=== PATIENT | female | born 1990 | race Two or more races ===

== ENCOUNTER 2020-05-23 13:25 | Outpatient (REF) | payer BC, SELFPAY ==
[2020-05-26 11:09] LABS: CT PCR NOT DETECTED (Not Detect.); NG PCR NOT DETECTED (Not Detect.)
== END 2020-05-23 13:26 | disposition home or self-care (01) ==
LOC: HO.LAB 13:25
PROVIDERS: Visit Provider Advanced Practice Midwife
DX: R10.2 Pelvic and perineal pain (principal); K59.00 Constipation, unspecified; Z20.2 Contact with and (suspected) exposure to infections with a predominantly sexual mode of transmission; Z32.02 Encounter for pregnancy test, result negative
CPT/HCPCS: 81025; 87491; 87591

== ENCOUNTER 2020-08-16 13:31 | Outpatient (REF) | payer BC, SELFPAY ==
[2020-08-17 08:43] LABS: BV Int Neg Control Negative (Negative); BV Int Pos Control Positive (Positive)
[2020-08-21 07:32] LABS: HPV mRNA E6/E7 rflx Not Detected (Not Detected)
== END 2020-08-16 13:32 | disposition home or self-care (01) ==
LOC: HO.LAB 13:31
PROVIDERS: Visit Provider Advanced Practice Midwife
DX: Z01.411 Encounter for gynecological examination (general) (routine) with abnormal findings (principal); Z11.51 Encounter for screening for human papillomavirus (HPV); N89.8 Other specified noninflammatory disorders of vagina; F17.200 Nicotine dependence, unspecified, uncomplicated
CPT/HCPCS: 36415; 87480; 87510; 87624; 87660; 88142

== ENCOUNTER 2021-04-16 15:01 | Outpatient (REF) | payer BC, SELFPAY ==
[2021-04-16 16:38] LABS: MANUAL DIFF FLAG NO
[2021-04-16 17:20] LABS: Basophils Percent Auto 0.5 % (0-2); Eosinophils Absolute Auto 0.1 X10*3/uL (0.0-0.4); Eosinophils Percent Auto 1.4 % (0-4); Hematocrit 36.7 % (37.0-47.0); Imm Gran Abs Auto 0.01 X10*3/uL (0.00-0.03); Imm Gran Pct Auto 0.2 % (0.0-0.4); Lymphocytes Absolute Auto 2.8 X10*3/uL (1.2-4.9); Mean Corpuscular HGB Conc 32.7 g/dl (31.0-35.0); Mean Corpuscular Hemoglobin 27.4 pg (27.0-33.0); Mean Corpuscular Volume 83.8 fL (80.0-98.0); Mean Platelet Volume 10.5 fL (9.4-12.3); Monocytes Absolute Auto 0.8 X10*3/uL (0.1-1.2); Monocytes Percent Auto 11.7 % (2-11); Neutrophils Absolute Auto 2.71 x10*3/uL (2.0-8.3); Neutrophils Percent Auto 42.2 % (45-73); Platelet Count 309 X10*3/uL (160-400); Red Blood Count 4.38 X10*6/uL (4.20-5.50); Red Cell Distribution Width 12.9 % (11.0-16.0); White Blood Count 6.4 X10*3/uL (4.8-10.8)
[2021-04-16 17:46] LABS: Alanine Aminotransferase 31 U/L (0-31); Albumin Level 4.2 g/dL (3.5-5.0); Alkaline Phosphatase 74 U/L (39-117); Anion Gap 11 (12-20); Aspartate Amino Transferase 16 U/L (5-31); Bilirubin Total 0.3 mg/dL (0.0-1.0); Blood Urea Nitrogen 11 mg/dL (9-16); Calcium 8.8 mg/dL (8.4-10.2); Carbon Dioxide 24 mmol/L (22-29); Chloride 107 mmol/L (96-108); Estimated Glomerular Filt Rate > 60; Glucose Random 84 mg/dL (60-115); Potassium 4.1 mmol/L (3.3-5.1); Sodium 138 mmol/L (135-145); Total Protein 6.9 g/dL (6.5-8.0)
== END 2021-04-16 15:02 | disposition home or self-care (01) ==
LOC: HO.LAB 15:01
PROVIDERS: PCP Internal Medicine; Visit Provider Nurse Practitioner
DX: R10.10 Upper abdominal pain, unspecified (principal); K21.9 Gastro-esophageal reflux disease without esophagitis
CPT/HCPCS: 36415; 80053; 84443; 85025

== ENCOUNTER 2021-04-19 12:06 | Outpatient (REF) | payer BC, SELFPAY | END 2021-04-19 12:07 | disposition home or self-care (01) | LOC: HO.LNP 12:06 | PROVIDERS: Visit Provider Nurse Practitioner | DX: R10.10 Upper abdominal pain, unspecified (principal) | CPT/HCPCS: 87338 ==

== ENCOUNTER 2021-05-21 09:57 | Outpatient (REF) | payer BC, SELFPAY ==
--- NOTE | ~2021-05-21 | US_ITS ---
EXAMINATION: US ABDOMEN COMPLETE CLINICAL INFORMATION: Upper abdominal pain, unspecified. COMPARISON: None TECHNIQUE: Real-time imaging of the abdominal viscera. FINDINGS: PANCREAS: Normal. ABDOMINAL AORTA: The proximal, mid, and distal segments are normal in caliber. INFERIOR VENA CAVA: Visualized portions are normal. LIVER: The liver is normal in size. The liver contour is normal. There is increased liver echogenicity. No focal hepatic lesion. There is no intrahepatic biliary duct dilatation seen. GALLBLADDER: Normal. The gallbladder is physiologically distended without evidence of stones, sludge, polyps, wall thickening or pericholecystic fluid. COMMON BILE DUCT: Normal in caliber measuring 0.14 cm in diameter. RIGHT KIDNEY: Normal. No hydronephrosis. No renal calculi or focal parenchymal lesions. The kidney measures 9.7 cm in maximum dimension. LEFT KIDNEY: Normal. No hydronephrosis. No renal calculi or focal parenchymal lesions. The kidney measures 10.0 cm in maximum dimension. SPLEEN: Normal. The spleen measures 9.0 cm in maximum dimension. FREE FLUID: None. US/US abdomen complete IMPRESSION: Mild hepatic steatosis without focal lesion. Rest of the abdominal ultrasound is unremarkable.
== END 2021-05-21 09:58 | disposition home or self-care (01) ==
LOC: HO.HMGCX 09:57
PROVIDERS: PCP Internal Medicine; Visit Provider Internal Medicine
DX: R10.10 Upper abdominal pain, unspecified (principal)
CPT/HCPCS: 76700

== ENCOUNTER → 2021-05-28 12:42 | Outpatient (BNVA) | payer BC, SELFPAY | PROVIDERS: PCP Internal Medicine; Referring Provider Internal Medicine; Visit Provider Nurse Practitioner ==

== ENCOUNTER 2021-09-19 12:05 | Outpatient (REF) | payer BC, SELFPAY ==
--- NOTE | ~2021-09-19 | XR_ITS ---
EXAMINATION: XR HAND, RIGHT CLINICAL INFORMATION: Right hand pain. COMPARISON: 02/18/2018. TECHNIQUE: PA, lateral, and oblique views of the right hand. FINDINGS: The bones and soft tissues are normal. No fracture. Alignment is anatomic. Joint spaces are maintained. No erosions or soft tissue calcifications. XR/XR hand RT min 3V IMPRESSION: Unremarkable radiographic appearance of the right hand.
== END 2021-09-19 12:06 | disposition home or self-care (01) ==
LOC: HO.XRAY 12:05
PROVIDERS: PCP Internal Medicine; Visit Provider Internal Medicine
DX: M79.641 Pain in right hand (principal)
CPT/HCPCS: 73130

== ENCOUNTER 2021-09-25 10:04 | Outpatient (REF) | payer BC, SELFPAY ==
--- NOTE | ~2021-09-25 | XR_ITS ---
EXAMINATION: LEFT HAND AND WRIST X-RAY CLINICAL INFORMATION: Pain COMPARISON: None TECHNIQUE: 4 views of the left hand and wrist FINDINGS: Bone alignment is normal. No fracture or dislocation is seen. Joint spaces and soft tissues are normal. XR/XR hand wrist LT IMPRESSION: Unremarkable exam.
== END 2021-09-25 10:05 | disposition home or self-care (01) ==
LOC: HO.XRAY 10:04
PROVIDERS: Absent Provider Internal Medicine; PCP Internal Medicine; Visit Provider Family Medicine
DX: M25.532 Pain in left wrist (principal)
CPT/HCPCS: 73110; 73130

== ENCOUNTER 2021-10-10 10:23 | Outpatient (REF) | payer BC, SELFPAY ==
[2021-10-10 17:46] LABS: CT PCR NOT DETECTED (Not Detect.); NG PCR NOT DETECTED (Not Detect.)
[2021-10-11 13:08] LABS: BV Int Neg Control Negative (Negative); BV Int Pos Control Positive (Positive)
== END 2021-10-10 10:24 | disposition home or self-care (01) ==
LOC: HO.LAB 10:23
PROVIDERS: PCP Internal Medicine; Visit Provider Advanced Practice Midwife
DX: Z01.419 Encounter for gynecological examination (general) (routine) without abnormal findings (principal); N89.8 Other specified noninflammatory disorders of vagina; F17.210 Nicotine dependence, cigarettes, uncomplicated; Z20.2 Contact with and (suspected) exposure to infections with a predominantly sexual mode of transmission
CPT/HCPCS: 87480; 87491; 87510; 87591; 87660

== ENCOUNTER 2021-10-15 08:49 | Outpatient (REF) | payer BC, SELFPAY | END 2021-10-15 08:50 | disposition home or self-care (01) | LOC: HO.HOSX 08:49 | PROVIDERS: Visit Provider Orthopaedic Surgery | DX: Z13.89 Encounter for screening for other disorder (principal) ==

== ENCOUNTER 2021-11-12 09:16 | Outpatient (REF) | payer BC, SELFPAY | END 2021-11-12 09:17 | disposition home or self-care (01) | LOC: HO.HOSX 09:16 | PROVIDERS: Visit Provider Orthopaedic Surgery | DX: Z13.89 Encounter for screening for other disorder (principal) ==

== ENCOUNTER 2022-01-13 11:32 | Day surgery (SDC) | payer BC, SELFPAY ==
--- NOTE | 2021-09-13 13:12 | HO.ANESPROP2 ---
HPI - Anesthesia Eval Consult details Narrative: 31yo F for Upper Endoscopy PMFSH Active Problems Active Problems: All Active Problems (Updated 04/16/21 @ 15:48 by MIRIAM Lassiter) Upper abdominal pain (Acute) Vaginal itching (Acute) Smoking (Acute) Encounter for annual routine gynecological examination (Acute) Constipation (Acute) Pelvic pain in female (Acute) Past Medical History Medical History Asthma Eczema H. pylori infection Hyperthyroidism Lower back pain Suicide attempt Syncope Vitamin D deficiency Surgical History Surgical History Hx of tonsillectomy Social History Social History Alcohol intake: current Alcohol intake frequency: a few times a week Cigarettes Per Day: 7 Current occupational status: employed Sexual orientation: Straight/Heterosexual Meds Allergies Allergy/AdvReac Type Severity Reaction Status Date / Time morphine Allergy Unknown rash Verified 09/11/21 16:12 Motrin Allergy Unknown stomach Uncoded 09/11/21 16:12 upset Home Medications Medication Instructions Recorded Confirmed Last Taken Type albuterol sulfate 90 mcg/actuation 2 puff INHALATION Q6H PRN 04/16/21 09/11/21 Unknown History aerosol inhaler (ProAir HFA) naproxen 500 mg tablet 500 mg PO BID PRN 04/16/21 09/11/21 Unknown History polyethylene glycol 3350 17 17 g PO DAILY 04/16/21 09/11/21 Unknown History gram/dose oral powder pantoprazole 40 mg tablet,delayed 40 mg PO BID 05/28/21 09/11/21 Unknown History release loratadine 10 mg tablet 1 tab PO DAILY 09/11/21 09/11/21 Unknown History sucralfate 100 mg/mL oral 10 ml PO QID 09/11/21 09/11/21 Unknown History suspension Exam Exam Date and Time: September 13, 2021 1312 Pertinent Lab Results Pertinent Lab Results: Laboratory Tests 04/16/21 04/16/21 16:35 16:35 WBC 6.4 Hgb 12.0 Hct 36.7 L Plt Count 309 Sodium 138 Potassium 4.1 Chloride 107 Carbon Dioxide 24 BUN 11 Creatinine 0.72 Assessment and Plan Assessment Anesthesia Assessment: Chart Reviewed
[2022-01-07 14:36] VITALS: BMI 29.7
--- NOTE | 2022-01-10 08:59 | P.CONAN_ITS ---
Documented by User: Adeline Cosby NP 01/10/22 09:00 HPI - Anesthesia Eval Consult details Narrative: 31yo F for Upper Endoscopy PMFSH Active Problems Active Problems: All Active Problems (Updated 04/16/21 @ 15:48 by MIRIAM Lassiter) Upper abdominal pain (Acute) Vaginal itching (Acute) Smoking (Acute) Encounter for annual routine gynecological examination (Acute) Constipation (Acute) Pelvic pain in female (Acute) Past Medical History Medical History Asthma Eczema H. pylori infection Hyperthyroidism Lower back pain Suicide attempt Syncope Vitamin D deficiency Surgical History Surgical History Hx of tonsillectomy Social History Social History Alcohol intake: current Alcohol intake frequency: a few times a week Patient Tobacco Use Status: Current everyday Tobacco user Tobacco use type: Cigarette Cigarettes Per Day: 7 Use of substances other than those prescribed or required for medical reasons: No Are you DNR?: No Advance Directives: No Advance Directives Information Provided: Yes Recently lost weight without trying: No Nutrition Risks: No Nutritional Risk Current occupational status: employed Sexual orientation: Straight/Heterosexual Meds Allergies Allergy/AdvReac Type Severity Reaction Status Date / Time morphine Allergy Intermediate rash Verified 01/07/22 14:37 ibuprofen [From Motrin] AdvReac Intermediate Gastrointestinal Verified 01/07/22 14:37 Upset Home Medications Medication Instructions Recorded Confirmed Last Taken Type albuterol sulfate 90 mcg/actuation 2 puff inhalation Q6H PRN Wheezing 04/16/21 09/11/21 Unknown History aerosol inhaler (ProAir HFA) naproxen 500 mg tablet 500 mg PO BID PRN Pain 04/16/21 09/11/21 Unknown History polyethylene glycol 3350 17 17 g PO DAILY 04/16/21 09/11/21 Unknown History gram/dose oral powder pantoprazole 40 mg tablet,delayed 40 mg PO BID 05/28/21 09/11/21 Unknown History release loratadine 10 mg tablet 1 tab PO DAILY 09/11/21 09/11/21 Unknown History sucralfate 100 mg/mL oral 10 ml PO QID 09/11/21 09/11/21 Unknown History suspension Exam Exam Date and Time: January 10, 2022 0859 Height,Weight and Vital Signs: Height 5 ft 4 in Weight 78.471 kg Assessment and Plan Assessment Anesthesia Assessment: Chart Reviewed Documented by User: Fabienne Lara MD 01/13/22 12:30 [facility] Past Medical History Medical History Asthma Eczema H. pylori infection Hyperthyroidism Lower back pain Suicide attempt Syncope Vitamin D deficiency Family History Family history of problems with anesthesia: No Surgical History Surgical History Hx of tonsillectomy History of Problems with Anesthesia: No Social History Social History Alcohol intake: current Alcohol intake frequency: a few times a week Patient Tobacco Use Status: Current everyday Tobacco user Tobacco use type: Cigarette Cigarettes Per Day: 7 Use of substances other than those prescribed or required for medical reasons: No Are you DNR?: No Advance Directives: No Advance Directives Information Provided: Yes Recently lost weight without trying: No Nutrition Risks: No Nutritional Risk Current occupational status: employed Sexual orientation: Straight/Heterosexual Meds Allergies Allergy/AdvReac Type Severity Reaction Status Date / Time morphine Allergy Intermediate rash Verified 01/07/22 14:37 ibuprofen [From Motrin] AdvReac Intermediate Gastrointestinal Verified 01/07/22 14:37 Upset Home Medications Medication Instructions Recorded Confirmed Last Taken Type albuterol sulfate 90 mcg/actuation 2 puff inhalation Q6H PRN Wheezing 04/16/21 09/11/21 Unknown History aerosol inhaler (ProAir HFA) naproxen 500 mg tablet 500 mg PO BID PRN Pain 04/16/21 09/11/21 Unknown History polyethylene glycol 3350 17 17 g PO DAILY 04/16/21 09/11/21 Unknown History gram/dose oral powder pantoprazole 40 mg tablet,delayed 40 mg PO BID 05/28/21 09/11/21 Unknown History release loratadine 10 mg tablet 1 tab PO DAILY 09/11/21 09/11/21 Unknown History sucralfate 100 mg/mL oral 10 ml PO QID 09/11/21 09/11/21 Unknown History suspension Exam Airway Mallampati Class: II TM Dist: >3cm Neck ROM: Full Heart: rrr Lungs: cta Assessment and Plan Assessment Anesthesia Assessment: Anesthesia Plan Discussed Final Anesthetic Review Family History of Problems with Anesthesia: No History of Problems with Anesthesia: No NPO: Yes ASA Class: II Final Preanesthetic Review: No Changes in Pt Med Stat, Meds/Allgs Chart Reviewed and Consent Obtained/Reviewed Patient Risk: Intermediate Procedure Risk: Intermediate Anesthetic Plan Anesthetic Plan: MAC: Disposition: Standard PACU
[2022-01-13 12:14] VITALS: BP 125/52; PULSE 66; RESP 16; TEMP 36.2; O2SAT 97
[2022-01-13 12:35] LABS: UPreg QC Valid YES; Urine Pregnancy NEGATIVE (NEGATIVE)
[2022-01-13] MEDS: Lactated Ringers 1,000 ML 100 ML IVCONT (12:37)
--- NOTE | 2022-01-13 12:52 | MHC.SHP ---
Pre-Procedural Eval Section A Date of Service: 01/13/22 The patient is an INPATIENT: No The History & Physical has been completed within 30 days and I have reviewed it.: No Section B Chief Complaint: Upper abdominal pain Details of Present Illness: Upper abdominal pain Relevant Family History (Specify if Yes): No Relevant Social History: Tobacco Use Present Medications: see Short Stay Collaborative assessment Medical History: Significant History (Asthma Eczema H. pylori infection Hyperthyroidism Lower back pain Suicide attempt Syncope Vitamin D deficiency) History of Previous Operations: Relevant previous surgery/procedure and date(s) (History of tonsillectomy) Allergies: Allergies Allergy/AdvReac Type Severity Reaction Status Date / Time morphine Allergy Intermediate rash Verified 01/07/22 14:37 ibuprofen [From Motrin] AdvReac Intermediate Gastrointestinal Verified 01/07/22 14:37 Upset Review of Systems Sugical H&P ROS: Negative: Constitution, Cardiovascular and Respiratory and Yes, Specify: Gastrointestinal (abdominal pain) Exam Surgical H&P Exam: Normal: Heart, Normal: Lungs, Normal: Extremities and Normal: Abdomen Plan Diagnosis/Plan: Unchanged I have reviewed the history and physical and performed a pertinent physical examination on my patient. No changes have occurred unless specified.
--- NOTE | 2022-01-13 13:19 | PM.OP ---
Brief Operative Note Date of Service: 01/13/22 Pre-op diagnosis: Upper abdominal pain Post-op diagnosis: other (GERD, hiatal hernia, gastritis) Procedure: FLEXIBLE TRANSORAL UPPER GASTROINTESTINAL ENDOSCOPY WITH BIOPSIES Consent: Indications for the procedure and potential complications of bleeding, perforation, reaction to medications and missed diagnosis were discussed with the patient and informed consent was obtained. Instrument: Olympus GIF H 190 mid size upper endoscope Monitoring: Vital signs and clinical assessment, continuous EKG monitoring, Pulse oximetry, Carbon Dioxide monitoring and blood pressure monitoring were done throughout the procedure. Procedure: The patient was placed in the left lateral decubitis position and pre-procedure medications were administered and a bite block was placed. The endoscope was inserted into the mouth and advanced under direct vision to the third part of duodenum. A careful inspection was made as the upper endoscope was withdrawn including a retroflexed examination of the proximal stomach; Findings and interventions are described below. Findings: Larynx: Normal Esophagus: GE junction at 34 cms, small hiatal hernia 34 to 36 cms. A single 1.5 cms erosion at GE junction. No esophagitis or Alexander's. Stomach: Mild gastric erythema. Biopsies were obtained. Grade 2 flap valve on retroflexed examination of the cardia. Duodenum: Normal bulb and descending duodenum. Biopsies were obtained from 3rd part of the duodenum to check for celiac sprue Intervention: Biopsies as noted above Impression and Post Procedure Diagnosis: Endoscopy Findings: ESOPHAGUS: GE junction at 34 cms, small hiatal hernia 34 to 36 cms. A single 1.5 cms erosion at GE junction. No esophagitis or Alexander's. STOMACH: Mild gastric erythema. Biopsies were obtained. DUODENUM: Normal - biopsied to check for celiac sprue Plan: Await pathology results Patient has an appointment on 01/28/22 in the GI Clinic with Monique Levine NP. GERD and Hiatal Hernia handouts were given in the discharge area Surgeon: Jennifer Solis MD Anesthesia: MAC (Dr Taylor) Was an Certification Engineer used for this Procedure?: Yes Certification Engineer: Dimitri Cuenca Estimated blood loss (mL): 0 Pathology: other ( A) BX Small Bowel R/O Celliacs Disease B) BX Gastric Antrum R/O H. Pylori) Condition: stable Disposition: PACU
--- NOTE | 2022-01-13 13:20 | W.PM.OPN ---
Operative Note Operative Note Date of Service: 01/13/22 Narrative: Pre-op diagnosis: Upper abdominal pain Post-op diagnosis:?other (GERD, hiatal hernia, gastritis) Procedure: FLEXIBLE TRANSORAL UPPER GASTROINTESTINAL ENDOSCOPY WITH BIOPSIES Consent:?Indications for the procedure and potential complications of bleeding, perforation, reaction to medications and missed diagnosis were discussed with the patient and informed consent was obtained. Instrument:?Olympus GIF H 190 mid size upper endoscope Monitoring: Vital signs and clinical assessment, continuous EKG monitoring, Pulse oximetry, Carbon Dioxide monitoring and blood pressure monitoring were done throughout the procedure. Procedure:?The patient was placed in the left lateral decubitis position and pre-procedure medications were administered and a bite block was placed. The endoscope was inserted into the mouth and advanced under direct vision to the third part of duodenum. A careful inspection was made as the upper endoscope was withdrawn including a retroflexed examination of the proximal stomach; Findings and interventions are described below. Findings: Larynx:? Normal Esophagus: GE junction at 34 cms, small hiatal hernia 34 to 36 cms. A single 1.5 cms erosion at GE junction.? No esophagitis or Alexander's. Stomach: Mild gastric erythema. Biopsies were obtained. Grade 2 flap valve on retroflexed examination of the cardia. Duodenum: Normal bulb and descending duodenum. Biopsies were obtained from 3rd part of the duodenum to check for celiac sprue Intervention: Biopsies as noted above Impression and Post Procedure Diagnosis: Endoscopy Findings: ESOPHAGUS: GE junction at 34 cms, small hiatal hernia 34 to 36 cms. A single 1.5 cms erosion at GE junction.? No esophagitis or Alexander's. STOMACH:? Mild gastric erythema. Biopsies were obtained. DUODENUM:? Normal - biopsied to check for celiac sprue Plan: Await pathology results Patient has an appointment on 01/28/22 in the GI Clinic with? Monique Levine NP. GERD and Hiatal Hernia handouts were given in the discharge area Surgeon: Jennifer Solis MD Anesthesia:?MAC (Dr Taylor) Was an Commodity Trader used for this Procedure?:?Yes Commodity Trader:?Dimitri Cuenca Estimated blood loss (mL):?0 Pathology:?other ( A) BX Small Bowel? R/O Celliacs Disease? B) BX Gastric Antrum? R/O H. Pylori) Condition:?stable Disposition:?PACU
[2022-01-13 13:39] VITALS: BP 99/56; PULSE 59; RESP 14; TEMP 36.1; O2SAT 100
[2022-01-13 13:54] VITALS: BP 114/63; PULSE 83; RESP 18; TEMP 36.1; O2SAT 100
== END 2022-01-13 14:08 | disposition home or self-care (01) ==
PROVIDERS: Nurse Practitioner; PCP Internal Medicine; Visit Provider Internal Medicine Gastroenterology
PROC: 0DJ08ZZ Inspection of Upper Intestinal Tract, Via Natural or Artificial Opening Endoscopic (ICD-10-PCS; CPT 43235; principal; 2022-01-13 12:40)
DX: K29.50 Unspecified chronic gastritis without bleeding (principal); K44.9 Diaphragmatic hernia without obstruction or gangrene; K20.80 Other esophagitis without bleeding; K21.9 Gastro-esophageal reflux disease without esophagitis; K76.0 Fatty (change of) liver, not elsewhere classified; K59.00 Constipation, unspecified; J45.909 Unspecified asthma, uncomplicated; L30.9 Dermatitis, unspecified; E05.90 Thyrotoxicosis, unspecified without thyrotoxic crisis or storm; E55.9 Vitamin D deficiency, unspecified; R55 Syncope and collapse; M54.50 Low back pain, unspecified; Z79.899 Other long term (current) drug therapy; Z88.8 Allergy status to other drugs, medicaments and biological substances; F12.10 Cannabis abuse, uncomplicated
CPT/HCPCS: 43239; 81025; 88305; 88342; J3010

== ENCOUNTER 2023-01-23 14:38 | Outpatient (AMB) | payer BC, SELFPAY ==
[2023-01-23 14:48] VITALS: BP 120/72; BMI 27.3
--- NOTE | 2023-01-23 14:48 | MHC.OFFVIS ---
Intake Vital Signs 01/23/23 14:48 Height 5 ft 4 in Weight 159 lb BMI 27.3 BP 120/72 Intake Visit Reasons: Annual Intake Note: no concerns The patient agreed to use of a medical billing supervisor during this encounter. Scribed for THEODORE Domingo by Purvi Ortiz medical billing supervisor, on 01/23/2023 at 3:13 pm EST. Data Acquisition Technician Required: No Information Interpreted: non-clinical & clinical [employer] Contact Printer: [employer] Boards Contact Printer Present (Trinity REYNOSO) Accompanied by: Self / Same As Patient Allergies morphine Allergy (Intermediate, Verified 01/23/23 14:52) rash ibuprofen [From Motrin] Adverse Reaction (Intermediate, Verified 01/23/23 14:52) Gastrointestinal Upset Is last menstrual period known: Yes Last menstrual period: 01/17/23 HPI HPI Comments History of Present Illness Details She is a premenopausal woman presenting for annual exam. Reports frequent urination at night and hydrates well during the day. She admits to eating healthy and tries to stay active with exercise. Currently not sexually active. Denies vaginal itching and irritation. STD screening offered; she declines. Denies family hx of breast, colon and ovarian cancer. Last pap smear 08/17/20. PFSH Medical History Asthma Eczema H. pylori infection Hyperthyroidism Lower back pain Suicide attempt Syncope Vitamin D deficiency Surgical History History of esophagogastroduodenoscopy Hx of tonsillectomy Family History Mother HTN (hypertension) Acute asthma Social History Household Members: None Housing: House Alcohol intake: current Alcohol intake frequency: a few times a week Patient Tobacco Use Status: Current everyday Tobacco user Tobacco use type: Cigarette Cigarettes Per Day: 7 Current occupational status: employed Current occupation: Sociology Faculty Member post office Sexual orientation: Straight/Heterosexual Gender identity: Female Female Reproductive History Menstrual Age of Menarche: 10 Date of last menstrual period: 01/17/23 control method: none Total pregnancies: 1 Number of Living Children: 0 Ab spontaneous: 0 Date of last pap smear: 08/17/20 Physical Exam Vital Signs: Last Vital Signs BP 120/72 01/23/23 14:48 BMI result Body Mass Index 27.3 Const General: cooperative, healthy appearing, no acute distress, well developed and alert Orientation/consciousness: patient oriented x3 HEENT Head: Yes normal to inspection Eyes General: appearance normal, both eyes and all related structures Neck Neck: Yes normal visual inspection Thyroid: Thyroid normal Chest Chest palpation & inspection: normal inspection of the chest Breast/axilla inspection: normal inspection of the breasts (no puckering, dimpling, peau de orange, retraction, discharge, masses) Breast/axilla palpation: normal palpation of the breasts Resp Effort & Inspection: normal respiratory effort GI Inspection: Yes normal to inspection Palpation (GI): Soft to palpation (to palpation) Rectal Exam - Female: deferred General: Yes bladder normal to inspection External Female Exam: normal external appearance and normal appearance of the urethra Speculum Exam - Vagina: normal appearance of the vagina, normal palpation and normal vaginal discharge Speculum Exam - Cervix: normal appearance of the cervix and normal palpation Bimanual exam- vagina & uterus: normal palpation and normal palpation Bimanual Exam- Adnexa, other: normal adnexae and no masses Skin General skin exam: no rashes or lesions noted Neuro General: patient oriented x3 Cognition (Neuro): normal cognition Extrem General: Yes normal to inspection Psych Attitude: cooperative Thought process: Normal thought process present Results AMB Urinalysis Dipstick UR Leukocytes Negative Last Edit by Trinity Bobo CMA on 01/23/23 15:34 UR Nitrite Negative Last Edit by Trinity Bobo CMA on 01/23/23 15:34 UR Urobilinogen Normal Last Edit by Trinity Bobo CMA on 01/23/23 15:34 UR Protein Trace Last Edit by Trinity Bobo CMA on 01/23/23 15:34 UR Ph 8.5 Last Edit by Trinity Bobo CMA on 01/23/23 15:34 UR Blood Negative Last Edit by Trinity Bobo CMA on 01/23/23 15:34 UR Specific [place] 1.010 Last Edit by Trinity Bobo CMA on 01/23/23 15:34 UR Ketone Negative Last Edit by Trinity Bobo CMA on 01/23/23 15:34 UR Bilirubin Negative Last Edit by Trinity Bobo CMA on 01/23/23 15:34 UR Glucose Negative Last Edit by Trinity Bobo CMA on 01/23/23 15:34 Results Reviewed Results Reviewed: Laboratory Last Values Urine pH (Clinic) 8.5 01/23/23 15:33 Specific [place] (Clinic) 1.010 01/23/23 15:33 Ur Protein (Clinic) Trace 01/23/23 15:33 Ur Ketones (Clinic) Negative 01/23/23 15:33 Urine Blood (Clinic) Negative 01/23/23 15:33 Urine Nitrite Negative 01/23/23 15:33 Urine Bilirubin (Clinic) Negative 01/23/23 15:33 Urobilinogen (Clinic) Normal 01/23/23 15:33 Leukocyte Esterase (Clinic) Negative 01/23/23 15:33 Urine Glucose (Clinic) Negative 01/23/23 15:33 Assessment & Plan Assessment & Plan (1) Encounter for annual routine gynecological examination: Code(s): Z01.419 - Encounter for gynecological examination (general) (routine) without abnormal findings Plan: Discussed: Current recommendations for pap smears per ASCCP guidelines Breast awareness and periodic self breast exams. Maintaining a healthy lifestyle including a well balanced diet and routine exercise. Encouraged to use condoms for STD and prevention if become sexual active. All of her questions and concerns were addressed to the best of my ability. RTO in one year for AG. (2) Frequency of urination: Code(s): R35.0 - Frequency of micturition Plan: Recommend to limit caffeine, one per day, and to stop carbonated, sugared, and artificial sweetened beverages. Hydrate well with water. Orders: Orders AMB Urinalysis Dipstick Today R10.2 - Pelvic and perineal pain Coding Level of Care Code Est Pt Prev Care 18-39y(59538) Diagnoses Encounter for annual routine gynecological examination Z01.419 Frequency of urination R35.0
== END 2023-01-23 15:24 | disposition home or self-care (01) ==
LOC: HO.HWS 14:38
PROVIDERS: PCP Internal Medicine; Visit Provider Advanced Practice Midwife
DX: Z01.419 Encounter for gynecological examination (general) (routine) without abnormal findings (principal); R35.0 Frequency of micturition; R10.2 Pelvic and perineal pain
CPT/HCPCS: 99395

== ENCOUNTER → 2023-01-23 14:38 | Outpatient (BNVA) | payer BC, SELFPAY | PROVIDERS: PCP Internal Medicine; Visit Provider Advanced Practice Midwife | DX: Z01.419 Encounter for gynecological examination (general) (routine) without abnormal findings (principal); R35.0 Frequency of micturition | CPT/HCPCS: 81002 ==

== ENCOUNTER 2023-08-28 10:13 | Outpatient (AMB) | payer BC, SELFPAY ==
--- NOTE | 2023-08-28 10:35 | AM.OFFWIN_ITS ---
Intake Vital Signs 08/28/23 10:36 Weight 170 lb BP 120/80 Blood Pressure Location Rt brachial Position Sitting Pulse 92 Pulse Source Pulse Oximeter Temp 99.2 F Temp Source Oral Pulse Oximetry (%) 98 Oxygen Delivery Method Room Air Intake Visit Reasons: EP Cough, headache, fever (masked) Intake Note: Patient here for cough, fever, chills, body aches since yesterday. Patient Tobacco Use Status: Current everyday Tobacco user Allergies morphine Allergy (Intermediate, Verified 08/28/23 10:36) rash ibuprofen [From Motrin] Adverse Reaction (Intermediate, Verified 08/28/23 10:36) Gastrointestinal Upset Do you need a note to return to daycare/school/sports/work: Yes HPI HPI Comments History of Present Illness Details 33 y/o female patient who presents to [facility] in clinic with c/o fevers, chills, headaches since Thursday. She tested positive for COVID infection yesterday at home and Last week she had Influenza. She has been taking Acetaminophen for pain and fever relief. [facility] Medical History Asthma Eczema H. 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 Sexual orientation: Straight/Heterosexual Gender identity: Female Female Reproductive History Menstrual Age of Menarche: 10 Review of Systems Const All systems reviewed & are unremarkable except as noted in HPI and below Physical Exam Vital Signs: Last Vital Signs Temp 99.2 F 08/28/23 10:36 Pulse 92 08/28/23 10:36 BP 120/80 08/28/23 10:36 Pulse Ox 98 08/28/23 10:36 Oxygen Delivery Method Room Air 08/28/23 10:36 Const General: no acute distress; No comfortable Orientation/consciousness: patient oriented x3 HEENT Head: Yes normocephalic Ears: external ears normal and TM's normal bilaterally General nose exam: Abnormal mucous membranes and turbinates present boggy and erythematous Face and sinus: Yes sinuses nontender Mouth: moist mucous membranes Throat: Yes posterior oropharynx normal Neuro General: patient oriented x3 and gait normal Psych Speech and movement: Normal speech and movement present Assessment & Plan Assessment & Plan (1) Suspected COVID-19 virus infection: Code(s): Z20.822 - Contact with and (suspected) exposure to COVID-19 Plan: - Take medication as directed. Orders: Orders SARS-CoV2/FLU/RSV Today Z20.822 - Contact with and (suspected) exposure to COVID-19 Medications: New nirmatrelvir-ritonavir 300 mg (150 mg x 2)-100 mg (Paxlovid) take TWO 150 mg tablets of nirmatrelvir with ONE 100 mg tablet of ritonavir twice daily for 5 days PO 30 ea 0RF Z20.822 - Contact with and (suspected) exposure to COVID-19 Coding Level of Care Code Est Pt Level 3 (09752) Diagnoses Suspected COVID-19 virus infection Z20.822 Time Spent (min) 15
[2023-08-28 10:36] VITALS: BP 120/80; PULSE 92; TEMP 37.3; O2SAT 98
== END 2023-08-28 11:25 | disposition home or self-care (01) ==
PROVIDERS: PCP Internal Medicine; Visit Provider Nurse Practitioner Family
DX: Z20.822 Contact with and (suspected) exposure to COVID-19 (principal)
CPT/HCPCS: 99213

== ENCOUNTER 2023-08-28 11:01 | Outpatient (REF) | payer BC, SELFPAY ==
[2023-08-28 15:29] LABS: Influenza A PCR NEGATIVE (Negative); Influenza B PCR NEGATIVE (Negative); Resp Syncy Virus RNA Qual PCR NEGATIVE (Negative); SARS COV2 PCR INHOUSE POSITIVE (Negative)
== END 2023-08-28 11:02 | disposition home or self-care (01) ==
LOC: HO.LAB 11:01
PROVIDERS: Visit Provider Nurse Practitioner Family
DX: Z20.822 Contact with and (suspected) exposure to COVID-19 (principal)
CPT/HCPCS: 0241U

== ENCOUNTER 2024-03-31 11:21 | Outpatient (AMB) | payer BC, SELFPAY ==
--- NOTE | 2024-03-31 11:23 | A.OFFVIS_ITS ---
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 Doing well with no concerns. She tries to eat healthy and stays active with exercise. Regular monthly menses. Currently is sexually active. Uses condoms.She denies vaginal itching and irritation. STI screening offered; she declines. Denies family history of breast, ovarian or colon cancer. Last pap smear 2020, negative. [facility] Medical History Asthma Eczema H. 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 Sexual orientation: Straight/Heterosexual Gender identity: Female Female Reproductive History Menstrual Age of Menarche: 10 Duration of menses: 3-5 days Date of last menstrual period: 03/22/24 control method: condoms Total pregnancies: 1 Ab spontaneous: 1 Date of last pap smear: 08/16/20 (neg pap and hpv) Review of Systems Const All systems reviewed & are unremarkable except as noted in HPI and below Reports as per HPI Eyes Reports no additional complaints ENT Reports no additional complaints Card Reports no additional complaints Resp Reports no additional complaints GI Reports as per HPI and Reports no additional complaints Reports as per HPI Musc Reports no additional complaints Skin/Breast Reports as per HPI Neuro Reports no additional complaints Psych Reports no additional complaints Endo Reports no additional complaints Ha/Lymph Reports no additional complaints Aller/Immun Reports no additional complaints Physical Exam Const General: cooperative, healthy appearing, no acute distress, well developed and alert Orientation/consciousness: patient oriented x3 HEENT Head: Yes normal to inspection Eyes General: appearance normal, both eyes and all related structures Neck Neck: Yes normal visual inspection Thyroid: Thyroid normal Chest Chest palpation & inspection: normal inspection of the chest and other (no puckering, dimpling, peau de orange, retraction, discharge, masses) Breast/axilla inspection: normal inspection of the breasts Breast/axilla palpation: normal palpation of the breasts Resp Effort & Inspection: normal respiratory effort GI Inspection: Yes normal to inspection Palpation (GI): Soft to palpation Rectal Exam - Female: deferred General: Yes bladder normal to palpation External Female Exam: normal external appearance and normal appearance of the urethra Speculum Exam - Vagina: normal appearance of the vagina, normal palpation and normal vaginal discharge Speculum Exam - Cervix: normal appearance of the cervix and normal palpation Bimanual exam- vagina & uterus: normal bimanual exam, normal palpation, uterine size normal, bladder normal to palpation, normal palpation and non-tender Bimanual Exam- Adnexa, other: no masses Skin General skin exam: no rashes or lesions noted Rashes: no rashes Neuro General: patient oriented x3 Cognition (Neuro): normal cognition Extrem General: Yes normal to inspection Psych Attitude: cooperative Thought process: Normal thought process present Assessment & Plan Assessment & Plan (1) Encounter for gynecological examination (general) (routine) with abnormal findings: Code(s): Z01.411 - Encounter for gynecological examination (general) (routine) with abnormal findings Plan Discussed: Current recommendations for pap smears per ASCCP guidelines. Breast awareness and periodic breast exams. Maintain a healthy lifestyle including a well balanced diet and routine exercise. Use condoms for STI and prevention. Patient verbalizes understanding and agrees to the plan of care. She was given opportunity to ask questions and all questions were answered to the best of my ability. RTO in one year for annual clinical coordinator examination. This note is constructed using voice recognition software. While every effort has been made to ensure accuracy, template layout worker errors may have been included. Coding Level of Care Code Est Pt Prev Care 18-39y(12094) Diagnoses Encounter for gynecological examination (general) (routine) with abnormal findings Z01.411
[2024-03-31 11:24] VITALS: BP 98/62; BMI 27.5
== END 2024-03-31 11:39 | disposition home or self-care (01) ==
PROVIDERS: PCP Internal Medicine; Visit Provider Advanced Practice Midwife
DX: Z01.411 Encounter for gynecological examination (general) (routine) with abnormal findings (principal)
CPT/HCPCS: 99395

== ENCOUNTER → 2024-03-31 11:21 | Outpatient (BNVA) | payer BC, SELFPAY | PROVIDERS: PCP Internal Medicine; Visit Provider Advanced Practice Midwife ==

== ENCOUNTER 2024-08-16 11:14 | Outpatient (REF) | payer BC, SELFPAY ==
--- NOTE | ~2024-08-16 | XR_ITS ---
CLINICAL HISTORY: Acute on chronic low back pain, worse in AM 3 views lumbar spine Comparison: None Findings: Normal vertebral body alignment. No acute fractures or dislocation. Sclerotic changes on both sides of the sacroiliac joints, most pronounced along the iliac margin. Impression: No lumbar spine fracture or malalignment. No significant degenerative change involving the lumbar spine. Sclerotic changes along the sacroiliac joints consistent with a history of sacroiliitis This document has been electronically signed by: Oh Antunez MD on 08/17/2024 21:15:11
--- NOTE | ~2024-08-16 | XR_ITS ---
CLINICAL HISTORY: Inflammatory low back pain; evaluate for sacroiliitis 1 view pelvis Comparison: None Findings: No acute fracture or dislocation. Abnormal sclerosis on both sides of the sacroiliac joints. IMPRESSION: Abnormal sclerotic change on both sides of the sacroiliac joints consistent with a history of sacroiliitis No fracture or acute malalignment. This document has been electronically signed by: Oh Antunez MD on 08/17/2024 21:00:55
--- OUTSIDE RECORDS SUMMARY | 2024-08-16 14:09 | XMS_ITS | Encounter Summary ---
Author Organization [employer] Address [address] [place] [address] [address] [place] [address] Care Team Providers Care Lamp Assembler Name Role Phone Isacc Pinzon MD Primary Care Prov ider Encounter Details Date Type Department Care Team (Latest Contact Info) Description 07/20/2024 Travel Social History Tobacco Use Types Packs/Day Years Used Date Smoking Tobacco: Never Assessed Comments Unknown Sex and Gender Information Value Date Recorded Sex Assigned at Female 04/14/2022 10:30 AM EDT Legal Sex Female 10:30 AM EDT Gender Identity Female 04/14/2022 10:30 AM EDT Sexual Orientation Choose not to disclose 2021 10:30 AM EDT documented as of this encounter Plan of Treatment Not on file documented as of this encounter Visit Diagnoses Not on filedocumented in this encounter Care Teams Lamp Assembler Relationship Specialty Start Date End Date Isacc Pinzon MD [address] [place] [address] PCP - General Internal Medicine 11/08/19 documented as of this encounter
--- OUTSIDE RECORDS SUMMARY | 2024-08-16 14:09 | XMS_ITS | Encounter Summary ---
Author Organization [employer] Address [address] [facility] [address] [place] [address] Care Team Providers Care Feed Weigher Name Role Phone Isacc Pinzon MD Primary Care Prov ider Encounter Details Date Type Department Care Team (Latest Contact Info) Description 11/22/2020 [facility] CONVERSIONS Dental, Provider, DDS Social History Tobacco Use Types Packs/Day Years [...] on filedocumented in this encounter Care Teams Feed Weigher Relationship Specialty Start Date End Date Isacc Pinzon MD [address] [place] [address] PCP - General Internal Medicine 11/08/19 documented as of this encounter
--- OUTSIDE RECORDS SUMMARY | 2024-08-16 14:09 | XMS_ITS | Encounter Summary ---
Author Organization [employer] Address [address] [facility] [address]t [place] [address] Care Team Providers Care Automatic Screwmaker Name Role Phone Isacc Pinzon MD Primary Care Prov ider Encounter Details Date Type Department Care Team ([facility] st Contact Info) Description 07/20/2024 3:15 PM EST Office Visit [facility] MED & PEDS [address] [place], [place] [phone] Isacc Pinzon MD [address] [place] [address] Epitrochlear bursitis of left elbow (Primary Dx); Dietary counseling; Exercise counseling Social History Tobacco Use Types Packs/Day Years Used Date Smoking Tobacco: Never Assessed Comments Unknown Sex and Gender Information Value Date Recorded Sex Assigned at Female 04/14/2022 10:30 AM EDT Legal Sex Female 10:30 AM EDT Gender Identity Female 04/14/2022 10:30 AM EDT Sexual Orientation Choose not to disclose 2021 10:30 AM EDT documented as of this encounter Last Filed Vital Signs Vital Sign Reading Time Taken Comments Blood Pressure 127/73 07/20/2024 3:31 PM EST Pulse 76 07/20/2024 3:31 PM EST Temperature 37.1 ??C (98.7 ??F) 07/20/2024 3:31 PM ES T Respiratory Rate 20 07/20/2024 3:31 PM EST Oxygen Saturation - - Inhaled Oxygen Concentration - - Weight 75.3 kg (166 lb) 07/20/2024 3:31 PM EST Height 157.5 cm (5' 2 ) 07/20/2024 3:31 PM EST Body Mass Index 30.36 07/20/2024 3:31 PM EST documented in this encounter Progress Notes * Isacc Donahue MD - 07/20/2024 3:15 PM EST Subjective Patient ID: Violet Lubin is a 34 y.o. female who presents for No chief complaint on file.. Pain This is a chronic problem. The pain is present in the left elbow. Pertinent negatives include no chest pain, fatigue, joint swelling or shortness of breath. There is no swelling present. Review of Systems Constitutional: Negative for chills and fatigue. Respiratory: Negative for cough and shortness of breath. Cardiovascular: Negative for chest pain. Musculoskeletal: Positive for arthralgias. Negative for joint swelling and myalgias. Objective Physical Exam Constitutional: Appearance: Normal appearance. Musculoskeletal: General: Tenderness present. Neurological: General: No focal deficit present. Mental Status: She is alert and oriented to person, place, and time. Psychiatric: Mood and Affect: Mood normal. Behavior: Behavior normal. Assessment/Plan Problem List Items Addressed This Visit None Visit Diagnoses Epitrochlear bursitis of left elbow - Primary Will prescribe prednisone and voltaren gel, rest, apply cols pads, call back if not improving, willconsider PT Dietary counseling Exercise counseling documented in this encounter Plan of Treatment Not on file documented as of this encounter Visit Diagnoses Diagnosis Epitrochlear bursitis of left elbow- Primary Dietary counseling Dietary surveillance and counseling Exercise counseling documented in this encounter Care Teams Automatic Screwmaker Relationship Specialty Start Date End Date Isacc Pinzon MD [address] [place] [id number] PCP - General Internal Medicine 11/08/19 documented as of this encounter
--- OUTSIDE RECORDS SUMMARY | 2024-08-16 14:09 | XMS_ITS | Encounter Summary ---
Author Organization [employer] Address [address] [place] [address] [address] [place] [address] Care Team Providers Care Infection Prevention Practitioner Name Role Phone Isacc Pinzon MD Primary Care Prov ider Encounter Details Date Type Department Care Team (Latest Contact Info) Description 08/12/2024 Travel Social History Tobacco Use Types Packs/Day [...] on filedocumented in this encounter Care Teams Infection Prevention Practitioner Relationship Specialty Start Date End Date Isacc Pinzon MD [address] [place] [address] PCP - General Internal Medicine 11/08/19 documented as of this encounter
--- OUTSIDE RECORDS SUMMARY | 2024-08-16 14:09 | XMS_ITS | Encounter Summary ---
Author Organization [employer] Address [address] [facility] 7 [place] [address] Care Team Providers Care Small Business Banking Officer Name Role Phone Isacc Pinzon MD Primary Care Prov ider Reason for Visit * Reason Onset Date Comments Nurse Triage 08/11/2024 Encounter Details Date Type Department Care Team (Late st Contact Info) Description 08/11/2024 Telephone [facility] MEDICINE [address] [place] [address] Isacc Pinzon MD [address] [place] [address] Nurse Triage Social History Tobacco Use Types Packs/Day Years Used Date Smoking Tobacco: Never Assessed Comments Unknown Sex and Gender Information Value Date Recorded Sex Assigned at Female 04/14/2022 10:30 AM EDT Legal Sex Female 10:30 AM EDT Gender Identity Female 04/14/2022 10:30 AM EDT Sexual Orientation Choose not to disclose 2021 10:30 AM EDT documented as of this encounter Miscellaneous Notes * Telephone Encounter - Jena McginnisVENTURA orosco - 08/11/2024 3:50 PM EST Triage call returned to patient who reports long standing issue with her back. Patient now with increased lower left back pain that radiates into her thigh and into her knee. No recent accident or injury no fever no urinary symptoms. No recent imaging and is taking OTC Tylenol with no noted improvement. No numbness or swelling of foot. Disposition reviewed and patient in agreement with plan. ASK/SDC/CHC tomorrow at 1040am.Reviewed with patient home care recommendations and reasons to call back.Pt verbalized understanding and agrees. Protocol Used: Back Pain (Adult) Protocol-Based Disposition: See in Office or Video Visit within 3 Days Video visit not offered Positive Triage Questions: * Pain radiates into the thigh or further down the leg * Patient wants to be seen * All higher-acuity triage questions were negative Care Advice Discussed: * Cold or Heat * Sleep * Continue Activity * Pain Medicines * Reasons To Call Back - Fever occurs - Numbness or weakness occurs - Loss of control of your bladder or bowel - Pain becomes worse - You become worse * Telephone Encounter - Wendy Cartwright - 08/11/2024 3:36 PM EST Symptom: Back Pain - Not From Injury Outcome: Transfer to a nurse or provider NOW! Reason: Age over 30: sudden AND severe upper back pain The caller accepted this outcome. documented in this encounter Plan of Treatment Not on file documented as of this encounter Visit Diagnoses Not on filedocumented in this encounter Care Teams Small Business Banking Officer Relationship Specialty Start Date End Date Isacc Pinzon MD [address] [place] [address] PCP - General Internal Medicine 11/08/19 documented as of this encounter
--- OUTSIDE RECORDS SUMMARY | 2024-08-16 14:09 | XMS_ITS | Encounter Summary ---
Author Organization [employer] Address [address] [facility] [address]t [place] [address] Care Team Providers Care Registered Client Associate Name Role Phone Isacc Pinzon MD Primary Care Prov ider Encounter Details Date Type Department Care Team (Late st Contact Info) Description 08/15/2024 Orders Only [facility] MED & PEDS [address] [place], [place] [phone] Isacc Pinzon MD [address] [place] [address] Social History Tobacco Use Types Packs/Day Years [...] on filedocumented in this encounter Care Teams Registered Client Associate Relationship Specialty Start Date End Date Isacc Pinzon MD [address] [place] [address] PCP - General Internal Medicine 11/08/19 documented as of this encounter
--- OUTSIDE RECORDS SUMMARY | 2024-08-16 14:09 | XMS_ITS | Clinical Summary ---
Author Organization [facility] Address [id number] [place] [id number] Care Team Providers Care Administrative Technician Name Role Phone Unavailable Primary Care Provider Unavailabl e Surgical History Surgery Date Site/Laterality Comments TONSILLECTOMY PROCEDURE: HISTORICAL TONSILLECTOMY Medical History Medical History Date Comments Asthma DX:Asthma Anxiety DX:Anxiety Depression DX:Depression Family History Medical History Relation Name Comments Diabetes Aunt 1 Diabetes Mother Relation Name Status Comments Aunt 1 Aunt 2 Mother Social History Tobacco Use Types Packs/Day Years Used Date Smoking Tobacco: Every Day Cigarettes Alcohol Use Standard Drinks/Week Comments Yes 0 (1 standard drink = 0.6 oz pur e alcohol) Comments Unknown Sex and Gender Information Value Date Recorded Sex Assigned at Not on file Legal Sex Female 2:00 AM EST Gender Identity Not on file Sexual Orientation Not on file Obstetrics History Plan of Treatment Health Maintenance Due Date Last Done Comments DTaP,Tdap,and Td Vaccines (1 - Tdap) 2007 Hepatitis B Vaccines (1 of 3 - 19+ 3-dose series) 2007 Cervical Cancer Screening: P ap Smear 2009 COVID-19 Vaccine (2023-2 5 season) 2024 Influenza Vaccine (#1) 2024 HIB Vaccines Aged Out No longer eligi ble based on patient's age to complete this topic HPV Vaccines Aged Out No longer eligi ble based on patient's age to complete this topic Hepatitis A Vaccines Aged Out No long er eligible based on patient's age to complete this topic IPV Vaccines Aged Out No longer eligi ble based on patient's age to complete this topic MMR Vaccines Aged Out No longer eligi ble based on patient's age to complete this topic Meningococcal ACWY Vaccine Aged Out N o longer eligible based on patient's age to complete this topic Meningococcal B Vacine Aged Out No lo nger eligible based on patient's age to complete this topic Pneumococcal Vaccine: Pediat rics (0 to 5 Years) and At-Risk Patients (6 to 64 Years) Aged Out No longer eligible b ased on patient's age to complete this topic RSV Immunization Patients Un addy 20 months Aged Out No longer eligible b ased on patient's age to complete this topic Varicella Vaccines Aged Out No longer eligible based on patient's age to complete this topic
--- OUTSIDE RECORDS SUMMARY | 2024-08-16 14:09 | XMS_ITS | Clinical Summary ---
Author Organization [email or web address] Address [address] [facility] [address] [place] [address] Care Team Providers Care Production Sorter Name Role Phone Isacc Pinzon MD Primary Care Prov ider Allergies No known active allergies Medications aluminum chloride (Drysol) 20 % external solution Apply topically 2 times daily. 60 mL 1 3 Active Diclofenac Sodium (Voltaren) 1 % gel Apply 1 g topically 2 times daily. 350 g 1 5 Active celecoxib (CeleBREX) 100 MG capsuleIndicati ons:Inflammator y back pain,History of esophageal ulcer Take 1 capsule (100 mg) by mouth if needed in the morning and at bedtime for moderate pain. 60 capsule 1 5 Active predniSONE (Deltasone) 20 MG tablet Take 2 tablets (40 mg) by mouth Once per day for 5 days. 10 tablet 5 07/25/19 25 Encounters Date Type Department Care Team Description 08/15/2024 Orders Only [facility]ED[facility] [address] [place] [address] Isacc Pinzon MD 08/12/2024 10:40 AM EST Office Visit [facility] [address] [place] [address] María Cast MD Left sided sciatica (Primary Dx); Inflammatory back pain; History of esophageal ulcer 08/12/2024 Travel 08/11/2024 Telephone [facility] MEDICINE [address] [place] [phone] Isacc Pinzon MD Nurse Triage 07/20/2024 3:15 PM EST Office Visit [facility] [address] [place] [address] Isacc Pinzon MD Epitrochlear bursitis of left elbow (Primary Dx); Dietary counseling; Exercise counseling 07/20/2024 Travel 07/18/2024 Telephone [facility] [address] [place] [address] Isacc Pinzon MD Nurse Triage from Last 3 Months Social History Tobacco Use Types Packs/Day Years Used Date Smoking Tobacco: Never Assessed Comments Unknown Sex and Gender Information Value Date Recorded Sex Assigned at Female 04/14/2022 10:30 AM EDT Legal Sex Female 10:30 AM EDT Gender Identity Female 04/14/2022 10:30 AM EDT Sexual Orientation Choose not to disclose 2021 10:30 AM EDT Last Filed Vital Signs Vital Sign Reading Time Taken Comments Blood Pressure 121/88 08/12/2024 11:18 AM EST Pulse 86 08/12/2024 11:18 AM EST Temperature 36.9 ??C (98.4 ??F) 08/12/2024 1 1:18 AM EST Respiratory Rate 14 08/12/2024 11:1 8 AM EST Oxygen Saturation 99% 08/12/2024 11: 18 AM EST Inhaled Oxygen Concentration - - Weight 76.6 kg (168 lb 12.8 oz) 025 11:18 AM EST Height 157.5 cm (5' 2 ) 08/12/2024 11:1 8 AM EST Body Mass Index 30.87 08/12/2024 11:18 AM EST Plan of Treatment Health Maintenance Due Date Last Done Comments Depression Screening 1988 HIV Screening 1988 SDOH Screening 1988 Alcohol/Substance Use Screening 2000 Tobacco Screening 2000 Family Planning (PISQ) 2003 Hepatitis C Screening 2006 Pneumococcal Vaccine: Pediatrics (0 to 5 Years) and At-Risk Patients (6 to 49) Years) (1 of 2 - PCV) 2007 Pap Smear 2009 Cervical Cancer Screening 2018 HPV/Cotest 2018 COVID-19 Vaccine (2023- season) 2024 Influenza Vaccine (#1) 2024 04/15/2006 DTaP/Tdap/Td Vaccines (8 - Td or Tdap) 06/15/2024 06/15/2014, 07/02/2012, 12/21/2009, Additional history exists Zoster Vaccines (1 of 2) 2038 RSV Patients and Patients Aged 60 years or older (1 - 1-dose 75+ series) 2063 HIB Vaccines Completed 03/14/1990 IPV Vaccines Completed 06/13/1993, 03/17, 03/14/1990, Additional history exists Hepatitis B Vaccines Completed 08/21/2000, 05/20/2000, 04/09/2000 HPV Vaccines Aged Out No longer eligi ble based on patient's age to complete this topic Hepatitis A Vaccines Aged Out No long er eligible based on patient's age to complete this topic Meningococcal Vaccine Aged Out No alejandra hung eligible based on patient's age to complete this topic RSV under 20 months Aged Out No longe r eligible based on patient's age to complete this topic Rotavirus Vaccines Aged Out No longer eligible based on patient's age to complete this topic Procedures Procedure Name Priority Date/Time Associated Diagnosis Comments POCT URINALYSIS DIPSTICK Routine 08/12/2024 1:00 PM EST Left sided sciatica from Last 3 Months Results * POCT urinalysis dipstick manually resulted (08/12/2024 1:00 PM EST) Color, UA Yellow Clarity, UA Clear Glucose, UA Negative Bilirubin, UA Negative Ketones, UA Negative Spec Grav, UA 1.020 Blood, UA Negative Negative, None Detected pH, UA 6.0 Protein, UA Negative Urobilinogen, UA 0.2 Leukocytes, UA Negative Negative, Rare, Trace Nitrite, UA Negative Negative, None Detected Appearance, UA clear QC Media Lot # Comment:[id number] Lot# Expiration Date Comment:03/14/2025 Urine 08/12/2024 1:00 PM EST us María Cast MD POINT OF CARE TEST ENTER/EDIT ORDERABLES Final Result from Last [address] [address] [address] Care Teams Production Sorter Relationship Specialty Start Date End Date Isacc Pinzon MD [address] [place] [phone] PCP - General Internal Medicine 11/08/19
--- OUTSIDE RECORDS SUMMARY | 2024-08-16 14:09 | XMS_ITS | Encounter Summary ---
Author Organization [employer] Address [address] [place] [address] [address] [place] [address] Care Team Providers Care Aquatic Scientist Name Role Phone Isacc Pinzon MD Primary Care Prov ider Reason for Referral * Consultation (Routine) - Closed Specialty Diagnoses / Procedures Referred By Ramana smith Referred To Contact Physical Therapy Diagnoses Left sided sciatica Inflammatory back pain María Cast MD [address] [place] [address] Phone: tel: fax: Physical Therapy, AT [address] [place] [address] Dr Tacho [place] Phone: tel: fax: Referral ID Status Reason Start Date Expiration Date V isits Requested Visits Authorized [id number] Closed Specialty Services Required 08/12/2024 08/12/2025 1 1 Reason for Visit * Reason Comments Back Pain back pain low left s don into thigh and knee Encounter Details Date Type Department Care Team ([facility] st Contact Info) Description 08/12/2024 10:40 AM EST Office Visit [facility] & PEDS [address] [place], [place] [phone] María Cast MD [address] [place], [place] [phone] Left sided sciatica (Primary Dx); Inflammatory back pain; History of esophageal ulcer Social History Tobacco Use Types Packs/Day Years [...] Mass Index 30.87 08/12/2024 11:18 AM EST documented in this encounter Progress Notes * María Cast MD - 08/12/2024 10:40 AM EST Subjective Patient ID: Violet Lubin is a 34 y.o. female who presents for Back Pain (back pain low left sideinto thigh and knee). JONI Lazo is here because of worsening back pain. She has had intermittent back pain for years. Painis usually on left side of low back and radiates down outside of thigh toward calf. Sometimes has similar pain on the right side. This time, it is primarily on the left side. Typically she will get an episode that will cause her pain for a few days, but this time, her pain started 5 days ago and just keeps getting worse. Pain is worse when she stands up from sitting, worse when bearing weight. Has stiffness in the morning when she gets out of bed, too, and feels better after moving around for abit. Notes some pain and feeling cold in her hands as well as cramps in her feet at times. No recent falls. No bowel or bladder difficulties. Has tried taking Tylenol without any relief. Does not take ibuprofen because she reports a history of ulcer and has frequent heartburn. Review of Systems Gastrointestinal: Positive for nausea (almost daily) and vomiting (frequently in the morning). Musculoskeletal: Positive for back pain and gait problem. Neurological: Negative for weakness. Objective BP 121/88 (BP Location: Left arm, Patient Position: Sitting, BP Cuff Size: Adult) Pulse 86 Temp98.4 ??F (36.9 ??C) (Oral) Resp 14 Ht 5' 2 (1.575 m) Wt 168 lb 12.8 oz (76.6 kg) SpO2 99% BMI 30.87 kg/m?? Physical Exam Skin: General: Skin is warm. Neurological: Mental Status: She is alert. Motor: Motor function is intact. Gait: Gait abnormal (antalgic. Painful to bear weight on left side.). Deep Tendon Reflexes: Reflex Scores: Brachioradialis reflexes are 3+ on the right side and 3+ on the left side. Patellar reflexes are 3+ on the right side and 3+ on the left side. Psychiatric: Mood and Affect: Mood normal. Behavior: Behavior normal. Assessment/Plan Diagnoses and all orders for this visit: Left sided sciatica: Gave her some exercises from Treat Your Own Back by Ari June (lying face down and lying face down in extension.) Recommended she do these exercises 2-3 times/day and to try celecoxib BID with some food. Will also refer her to PT and explained that she needs to do PT exercises at home during and after her time with PT. - POCT urinalysis dipstick manually resulted - Referral to Physical Therapy; Future Inflammatory back pain: Has AM stiffness which is c/w inflammatory back pain. Will check lumbar andpelvis films for signs of sacroillitis. - XR Lumbar Spine 2-3 Views; Future - XR Pelvis 1-2 Views; Future - celecoxib (CeleBREX) 100 MG capsule; Take 1 capsule (100 mg) by mouth if needed in the morning and at bedtime for moderate pain. - Referral to Physical Therapy; Future History of esophageal ulcer: No hx of peptic ulcer but did have esophageal ulcer in 2021. Will try FAUSTIN-2 selective NSAID. - celecoxib (CeleBREX) 100 MG capsule; Take 1 capsule (100 mg) by mouth if needed in the morning and at bedtime for moderate pain. documented in this encounter Plan of Treatment Scheduled Orders Name Type Priority Associated Diagnoses Orde r Schedule XR Lumbar Spine 2-3 Views Imaging Routine Inflammatory back pain Expected: 08/12/2024, Expires: 08/12/2025 XR Pelvis 1-2 Views Imaging Routine Inflammatory back pain Expected: 08/12/2024, Expires: 08/12/2025 Scheduled Referrals Name Type Priority Associated Diagnoses Orde r Schedule Referral to Physical Therapy Outpatient Referral Routine Left sided sciatica Inflammatory back pain Expected: 08/12/2024 (Approximate), Expires: 08/12/2025 documented as of this encounter Procedures Procedure Name Priority Date/Time Associated Diagnosis Comments POCT URINALYSIS DIPSTICK Routine 08/12/2024 1:00 PM EST Left sided sciatica documented in this encounter Results * POCT urinalysis dipstick manually resulted [...] Appearance, UA clear QC Media Lot # Comment:[id number] Lot# Expiration Date Comment:03/14/2025 Urine 08/12/2024 1:00 PM EST María Cast MD POINT OF CARE TEST ENTER/EDIT ORDERABLES Final Result documented in this encounter Visit Diagnoses Diagnosis Left sided sciatica- Primary Sciatica Inflammatory back pain History of esophageal ulcer documented in this encounter Care Teams Aquatic Scientist Relationship Specialty Start Date End Date Isacc Pinzon MD [address] [place] [id number] PCP - General Internal Medicine 11/08/19 documented as of this encounter
--- OUTSIDE RECORDS SUMMARY | 2024-08-16 14:09 | XMS_ITS | Encounter Summary ---
Author Organization [employer] Address [address] [facility] [address] [place] [address] Care Team Providers Care Clip On Sunglasses Inspector Name Role Phone Isacc Pinzon MD Primary Care Prov ider Reason for Visit * Reason Onset Date Comments Nurse Triage 07/18/2024 Encounter Details Date Type Department Care Team ([facility] st Contact Info) Description 07/18/2024 Telephone [facility] CH[facility] MED & PEDS [address] [place], [place] [phone] Isacc Pinzon MD [address] [place] [address] Nurse Triage Social History Tobacco Use Types [...] encounter Miscellaneous Notes * Telephone Encounter - Kelly Mims RN - 07/18/2024 12:54 PM EST Triage call 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 Pt reports being seen at , [facility], [address] [place] [address] on the 07/12/24. Phone is [phone]. Will request report. Pt reports dx of epicondylitis. Pt reports tylenol is not helpingwith the pain and unable to take ibuprofen. Pt has tried ice but, that only helps a little, Pt is advised to alternate ice and heat to see if that helps at all and PT agrees to try that. Pt denies numbness to left hand but, pain extends from elbow to fingers. Pt is unable to straighten out arm and it feels better when bent at the elbow and supported. ASK apt with PCP 07/20/24 @ 315pm. Unable to verify insurance. Pt agrees with disposition. Protocol Used: Elbow Pain (Adult) Protocol-Based Disposition: See in Office or Video Visit within 3 Days Video visit not offered Positive Triage Questions: * Moderate pain (e.g., interferes with normal activities) and present > 3 days * Patient wants to be seen * All higher-acuity triage questions were negative Care Advice Discussed: * Reassurance and Education - Elbow Pain * Pain Medicines * Pain Medicines - Extra Notes and Warnings * Expected Course * Reasons To Call Back - Moderate pain (such as interferes with normal activities) lasts over 3 days - Mild pain lasts over 7 days - Swollen joint or fever occurs - You become worse * Use a Cold Pack for Pain * Use Heat After 48 Hours for Pain * Telephone Encounter - Angi Snyder - 07/18/2024 12:33 PM EST Patient calling to report urgent care visit on : Date: 07/12/24 Hospital: Seen for: elbow pain Symptomatic Yes *if yes message should go to Triage Patient advised will forward to team nurse for follow up documented in this encounter Plan of Treatment Not on file documented as of this encounter Visit Diagnoses Not on filedocumented in this encounter Care Teams Clip On Sunglasses Inspector Relationship Specialty Start Date End Date Isacc Pinzon MD [address] [place] [id number] PCP - General Internal Medicine 11/08/19 documented as of this encounter
== END 2024-08-16 11:15 | disposition home or self-care (01) ==
LOC: HO.XRAY 11:14
PROVIDERS: PCP Internal Medicine; Visit Provider Internal Medicine
DX: M54.89 Other dorsalgia (principal)
CPT/HCPCS: 72100; 72170

== ENCOUNTER → 2024-08-16 11:18 | Outpatient (BNV) | payer BC, SELFPAY | PROVIDERS: PCP Internal Medicine; Visit Provider Radiology Vascular & Interventional Radiology | DX: M46.1 Sacroiliitis, not elsewhere classified (principal) | CPT/HCPCS: 72100; 72170 ==